=== PATIENT | female | born 1960 | race Caucasian/White ===

== ENCOUNTER 2020-06-13 12:11 | Outpatient (CLI) | payer BC ==
--- NOTE | 2020-06-13 12:50 | RAD ---
Radiograph left heel 2 views: 06/13/2020 HISTORY: 60-year-old female with left heel pain. "Peroneal tendinitis" FINDINGS: Moderately large enthesophyte at posterior aspect of calcaneus at Achilles tendon insertion site. Sof t tissue swelling-thickening slightly superior to this, with faint, ill-defined soft tissue calcification. Small to moderate-sized plantar calcaneal enthesophyte. No collapse of Boehler's angle. No grossly displaced calcaneal fracture identified. IMPRESSION: Achilles tendinopathy and Achilles enthesopathy.
== END 2020-06-13 12:12 | disposition home or self-care (01) ==
LOC: BICRAD 12:11
PROVIDERS: ATTEND Podiatrist
DX: M76.62 Achilles tendinitis, left leg (principal); M77.52 Other enthesopathy of left foot and ankle

== ENCOUNTER 2021-04-11 07:59 | Outpatient (CLI) | payer BC | END 2021-04-11 08:00 | disposition home or self-care (01) | LOC: BICMAMMO 07:59 | PROVIDERS: ATTEND Obstetrics & Gynecology | DX: Z12.31 Encounter for screening mammogram for malignant neoplasm of breast (principal); Z80.3 Family history of malignant neoplasm of breast | CPT/HCPCS: 77063; 77067 ==

== ENCOUNTER 2022-04-12 07:56 | Outpatient (CLI) | payer BC | END 2022-04-12 07:57 | disposition home or self-care (01) | LOC: BICMAMMO 07:56 | PROVIDERS: ATTEND Obstetrics & Gynecology | DX: Z12.31 Encounter for screening mammogram for malignant neoplasm of breast (principal); Z80.3 Family history of malignant neoplasm of breast | CPT/HCPCS: 77063; 77067 ==

== ENCOUNTER 2025-10-31 13:08 | Outpatient (CLI) | payer MEDICARE | END 2025-10-31 13:09 | disposition home or self-care (01) | LOC: BICRAD 13:08 | PROVIDERS: ATTEND Podiatrist | DX: M89.9 Disorder of bone, unspecified (principal); M79.89 Other specified soft tissue disorders ==